=== PATIENT | male | born 1970 | race Caucasian/White ===

== ENCOUNTER 2019-09-09 09:41 | Emergency (ER) | payer SELFPAY ==
[~2019-09-09] VITALS: Ht 177.8 cm; Wt 90.7 kg
[2019-09-09] MEDS ORDERED: IBUPROFEN 600 MG TABLET. PO ONE (10:00)
--- NOTE | 2019-09-09 10:04 | PHYS DOC ---
Past History Past Medical History: No Pertinent History Past Surgical History: Other Additional Past Surgical Histo: RIGHT WRIST RECONSTUCTION, HERNIA REPAIR X 2 Smoking: Cigarettes, Less than 1pk/day Alcohol Use: None Drug Use: Marijuana Adult General Chief Complaint Chief Complaint: KNEE SWELLING [facility] Patient is a 49-year-old male presents complaining of left knee pain and swelling. 3 days ago he was standing and twisting to turn off a light. He felt a pop in the medial portion of his knee. Since that time there is been increasing pain and swelling. No relief with ice. Increased pain with movement and walking. He is able to walk. No previous knee injury. He has taken no medication for pain. No numbness or tingling. No calf pain or swelling. No PE risk factors.[] Review of Systems Review of Systems Constitutional: Denies fever or chills [] Eyes: Denies change in visual acuity, redness, or eye pain [] HENT: Denies nasal congestion or sore throat [] Respiratory: Denies cough or shortness of breath [] Cardiovascular: No additional information not addressed in HPI [] GI: Denies abdominal pain, nausea, vomiting, bloody stools or diarrhea [] : Denies dysuria or hematuria [] Musculoskeletal: Denies back pain, see history of present illness[] Integument: Denies rash or skin lesions [] Neurologic: Denies headache, focal weakness or sensory changes [] Endocrine: Denies polyuria or polydipsia [] All other systems were reviewed and found to be within normal limits, except as documented in this note. Allergies Allergies Allergies Coded Allergies Type Severity Reaction Last Updated Verified No Known Drug Allergies 09/09/19 No Physical Exam Physical Exam Constitutional: Well developed, well nourished, no acute distress, non-toxic appearance. [] HENT: Normocephalic, atraumatic, bilateral external ears normal, oropharynx moist, no oral exudates, nose normal. [] Eyes: PERRLA, EOMI, conjunctiva normal, no discharge. [] Neck: Normal range of motion, no tenderness, supple, no stridor. [] Cardiovascular:Heart rate regular rhythm, no murmur [] Lungs & Thorax: Bilateral breath sounds clear to auscultation [] Abdomen: Bowel sounds normal, soft, no tenderness, no masses, no pulsatile masses. Pelvis is stable in 3 planes [] Skin: Warm, dry, no erythema, no rash. [] Back: No tenderness, no CVA tenderness. [] Extremities: Left knee has edema, tenderness to palpation along the medial aspect. No varus or valgus laxity. Negative drawer, negative Asim test. No patellar apprehension. No bruising. No ballotable patella. Active range of motion goes from full extension to 90. A joint above and a joined below were evaluated and were normal. He is distally neurovascularly intact. The other 3 extremities show: No tenderness, no cyanosis, no clubbing, ROM intact, no edema. [] Neurologic: Alert and oriented X 3, normal motor function, normal sensory function, no focal deficits noted. [] Psychologic: Affect normal, judgement normal, mood normal. [] Current Patient Data Vital Signs Vital Signs Date Time Temp Pulse Resp B/P (MAP) Pulse Ox O2 Delivery O2 Flow Rate FiO2 09/09/19 09:52 97.9 86 18 98 Room Air EKG EKG [] Radiology/Procedures Radiology/Procedures Left knee x-ray shows no fracture or dislocation[] Course & Med Decision Making Course & Med Decision Making Pertinent Labs and Imaging studies reviewed. (See chart for details) ED course: Patient arrived, was placed in bed, and tolerated exam well. He was transported to and from radiology with any consultations. He was given oral NSAIDs for pain management. After return of the imaging findings, he was placed in knee immobilizer, and trained on crutches. Findings and plan were discussed with the patient who voiced understanding. All questions were answered. He was discharged in improved condition. Medical decision making: There is no evidence of a fracture or dislocation. This may be of medial collateral ligament injury without full rupture. There is no evidence of ACL or PCL tear. No evidence of neurologic or vascular compromise. No evidence of a DVT.[] Dragon Disclaimer Dragon Disclaimer This electronic medical record was generated, in whole or in part, using a voice recognition dictation system. Departure Departure: Impression: Primary Impression: Left knee sprain Disposition: HOME, SELF-CARE Condition: IMPROVED Referrals: PCP,NO (PCP) Patient Instructions: Crutch Use, Knee Immobilizer-Brief, Medial Collateral Knee Ligament Sprain with Phase [facility] Additional Instructions: Follow-up with your regular doctor in 2 days. Weight-bear as tolerated while using the crutches. You may need to have an MRI of your knee to show the ligaments and other soft tissues better than an x-ray can. This can be arranged by your primary care physician as an outpatient. Return to the ER if worsening pain, weakness, or any other concerns. Scripts Meloxicam (MELOXICAM) 7.5 Mg Tablet 7.5 MG PO DAILY for PAIN, #20 TAB Prov: PARAMJIT GORDON DO 09/09/19 Problem Qualifiers Primary Impression: Left knee sprain Encounter type: initial encounter Involved ligament of knee: medial collateral ligament Qualified Codes: S83.412A - Sprain of medial collateral ligament of left knee, initial encounter PARAMJIT GORDON DO Sep 09, 2019 10:04
[2019-09-09] MEDS ORDERED: MELO7.5T29 PO (10:20)
[2019-09-09 10:28] VITALS: BP 146/104
--- NOTE | 2019-09-09 10:34 | RAD ---
KNEE LEFT 3V History: Pain and swelling Comparison: None. Findings: 3 views of left knee are submitted. There is moderate narrowing of the medial compartment joint space, mild osteoarthritic change of the lateral compartment and patellofemoral articulation. No acute fracture is identified. Impression: 1. There is tricompartmental osteoarthritic change greater of the medial compartment. Electronically signed by: John Gar MD (09/09/2019 10:31 AM) [id number]
[2019-09-09] MEDS ORDERED: TRAM50TA PO (10:40)
== END 2019-09-09 10:36 | disposition home or self-care (01) ==
LOC: ER 09:41
DX: S83.92XA Sprain of unspecified site of left knee, initial encounter (principal); F17.210 Nicotine dependence, cigarettes, uncomplicated; X50.9XXA Other and unspecified overexertion or strenuous movements or postures, initial encounter; Y93.89 Activity, other specified; Y92.89 Other specified places as the place of occurrence of the external cause; Y99.8 Other external cause status
CPT/HCPCS: 29505; 73562; 99284